=== PATIENT | male | born 1970 | race Caucasian/White ===

== ENCOUNTER 2020-02-28 08:58 | Day surgery (SDC) | payer OTHER ==
[~2020-02-28 08:58] MED LIST: ADVAIR 250-501 EACH INH; ALLOPURINOL100 MG PO; ALLOPURINOL300 MG PO; AMLODIPINE BESYL5 MG PO; FERROUS SULFAT325 MG PO; FREESTYLE LITE1 EAC1; GLIPIZIDE5 MG PO; HYDROCODON-ACE1 EA10 PO; IRON325 M1 PO; K-TAB ER20 MEQ PO; LEVOTHYROXINE50 MCG PO; LEVOTHYROXINE75 MCG PO; LINZESS145 MCG PO; LISINOPRIL20 MG PO; LUMIGAN2.5 M1 OPTH; NORCO 5-325 TA1 EACH PO; OMEPRAZOLE20 MG PO; ONE TOUCH ULTR1 EACH MISC; POTASSIUM40 MEQ/15 PO; RISPERDAL1 MG PO; SERTRALINE HCL100 MG PO; TORSEMIDE20 MG PO; VITAMIN D350 MCG PO; VITAMIN D35000 UNI1 PO; VITAMIN D5000 UNIT PO; [UNRECOGNIZED DRUG - SUPPLY] MISC
--- NOTE | 2020-02-28 09:17 | NUR ---
PATIENT IS ACCOMPANIED BY ELIA TRIM MECHANIC FROM [facility].
--- NOTE | 2020-02-29 11:23 | OR ---
[facility] [address] [place], [place] [address] Signed DATE OF OPERATION: 02/28/2020 SURGEON: Mellisa Markham MD PREOPERATIVE DIAGNOSES: 1. Left thyroid mass (5 cm). 2. Known metastatic renal cell carcinoma. 3. Morbid obesity and mental deficiency. POSTOPERATIVE DIAGNOSES: 1. Left thyroid mass (5 cm). 2. Known metastatic renal cell carcinoma. 3. Morbid obesity and mental deficiency. PROCEDURE: Ultrasound-guided fine-needle aspiration of left thyroid mass (three separate biopsies). SURGEON: Mellisa Markham MD ANESTHESIA: Local 1% lidocaine. INDICATIONS: This morbidly obese 49-year-old white man is a patient of Dr. Simba Russell, in [place], [place], and additionally, Dr. Garcia. He is known to have metastatic renal cell carcinoma. He has underlying developmental delay and impressive obesity. He was found to have a mass in his left thyroid, which measured nearly [address] scan confirmed by ultrasound on January 18, 2020. This has been assumed likely a metastatic renal cell carcinoma. He was referred for consideration of resection. However, I have recommended biopsy rather than directly proceeding to operation considering his comorbidities and so on. Additionally, he is anticipating a colonoscopy. He is now to undergo ultrasound-guided fine-needle aspiration biopsy of the left thyroid mass. He understands the risks of bleeding, infection, and so forth. He understands surprisingly well despite his mental deficiencies and certainly his caretakers understand it. FINDINGS: Easy visualization of the lesion was noted on ultrasound. Multiple passes with a 22-gauge needle were undertaken through the mass. Three separate biopsy specimens were sent, all of them somewhat bloody in appearance. There is no hemorrhage of the neck or Electronically Signed By: MELLISA MARKHAM MD 02/29/20 1123 PATIENT NAME: FLORIDA BROWNING OPERATIVE REPORT DATE OF : 68 REPORT #: [id number] PHYSICIAN: MELLISA MARKHAM MD PCP: Simba Russell DO REPORT IS CONFIDENTIAL AND NOT TO BE RELEASED WITHOUT AUTHORIZATION [facility] [address] [place], [place] [address] Signed other problem. I suspect that the lesion may well be metastatic renal cell carcinoma on that basis alone. DESCRIPTION OF PROCEDURE: In the Day Surgery area in the exam room, he was placed in the supine position with his neck with slight neck extension. Interrogation of the neck was undertaken with ultrasound probe from the iNeed device showing a well-defined large mass or left thyroid lobe. The area was prepared with a chlorhexidine solution and draped sterilely. The ultrasound probe was placed in a sterile sleeve. Revisualization of the lesion was undertaken and a few mL of 1% lidocaine was injected locally. Using a control syringe with a 22-gauge needle, passage of the needle into the mass itself was undertaken and multiple passes taken through it. The resultant aspiration biopsy was somewhat bloody and was passed into CytoLyt solution as usual. Two additional biopsies were taken with separate syringe and needle the same way, one of them transversely. Photographs were taken throughout. There was no sign of bleeding or other problem. A Band-Aid was applied. He tolerated the procedure well. Mellisa Markham MD JM/MODL /[id number] cc: MD Simba Giang DO Copies: SUSIE GARCIA MD, Jonas H DO ~ Electronically Signed By: MELLISA MARKHAM MD 02/29/20 1123 PATIENT NAME: FLORIDA BROWNING OPERATIVE REPORT DATE OF : 68 REPORT #: [id number] PHYSICIAN: MELLISA MARKHAM MD PCP: Simba Russell DO REPORT IS CONFIDENTIAL AND NOT TO BE RELEASED WITHOUT AUTHORIZATION
== END 2020-02-28 18:00 | disposition home or self-care (01) ==
LOC: OPS 08:58 → DS 08:58 → OPS 09:00 → DS 09:00 → EDSTATUS 09:00 → DS 09:04 → OPS 18:00
PROC: 0GBG4ZX Excision of Left Thyroid Gland Lobe, Percutaneous Endoscopic Approach, Diagnostic (ICD-10-PCS; principal; 2020-02-28)
DX: E07.9 Disorder of thyroid, unspecified (principal); C64.9 Malignant neoplasm of unspecified kidney, except renal pelvis; F79 Unspecified intellectual disabilities; J45.909 Unspecified asthma, uncomplicated; F32.9 Major depressive disorder, single episode, unspecified; K21.9 Gastro-esophageal reflux disease without esophagitis; I10 Essential (primary) hypertension; E66.01 Morbid (severe) obesity due to excess calories; Z79.899 Other long term (current) drug therapy; Z79.84 Long term (current) use of oral hypoglycemic drugs; Z68.43 Body mass index [BMI] 50.0-59.9, adult
CPT/HCPCS: 10021; 88173; 88305; 88341; 88342

== ENCOUNTER 2020-03-04 10:06 | Day surgery (SDC) | payer OTHER ==
[~2020-03-04] VITALS: Ht 165.1 cm; Wt 159.2 kg
--- NOTE | 2020-03-04 14:03 | NUR ---
03/04/20 1403 Virginie Kelley 1358-PATIENT ARRIVED TO PACU ON 6L MASK RR EVEN REACTIVE TO VERBAL STIMULI. LAYING LEFT LATERAL. ABDOMEN ROUND AND SOFT. GLUCOSE 96
--- NOTE | 2020-03-04 20:12 | EKG ---
[facility] [address] [facility] [place], [place] [address] Signed Normal sinus rhythm Cannot rule out Anterior infarct , age undetermined Abnormal ECG When compared with ECG of 05-NOV-2016 15:29, No significant change was found Confirmed by JENNIFER GIORDANO MD ([id number]) on 03/04/2020 8:12:16 PM Electronically Signed By: JENNIFER GIORDANO MD 03/04/202011 PATIENT NAME: FLORIDA BROWNING Electrocardiogram DATE OF : 68 PHYSICIAN: JENNIFER GIORDANO MD REPORT #: [id number] REPORT IS CONFIDENTIAL AND NOT TO BE RELEASED WITHOUT AUTHORIZATION
--- NOTE | 2020-03-05 15:16 | OR ---
[facility] [address] [place], [place] [address] Signed DATE OF OPERATION: 03/04/2020 SURGEON: Mellisa Markham MD PREOPERATIVE DIAGNOSES: 1. Episodic rectal bleeding. 2. Stage IV renal carcinoma. 3. Known external hemorrhoidal changes. POSTOPERATIVE DIAGNOSES: 1. Grade 4 hemorrhoidal disease. 2. Pedunculated low rectal polyp with ulceration and bleeding (likely source of rectal bleeding). PROCEDURES: Total colonoscopy to cecum with hot snare polypectomy of low rectal polyp. ANESTHESIA: Intravenous sedation, propofol infusion, Anmol Manley CRNA INDICATIONS: This 49-year-old morbidly obese, developmentally delayed white man, patient of Dr. Simba Russell, as well as Dr. Alexx Mckeon. He is known to have stage IV renal carcinoma and no longer on palliative chemotherapy. He recently was seen by me with a 5 cm mass of the left thyroid lobe, which was biopsied by ultrasound-guided technique and pathology is still pending. The patient incidentally has had issues of rectal bleeding. He has apparently been evaluated by Dr. Tovar in [place] with recommendation made for colonoscopy. The logistics of his colonoscopy have been problematic due to the COVID epidemic. His street sweeper operator is asking if the procedure could be done locally in a more timely way, that is certainly possible, and on that basis, he has been off for colonoscopy. The risks of bleeding, infection, and perforation was reviewed with the patient to the extent he could understand and his street sweeper operator and they understand and wished to proceed. FINDINGS: The prep was quite good. Complete colonoscopy was undertaken of the cecum without question. He did have some internal and external hemorrhoidal changes, but those are unlikely the source of his bleeding, thus far as I can tell. There was, however, a very elongated pedunculated ulcerated polyp of the low rectum. This was moreover consistent Electronically Signed By: MELLISA MARKHAM MD 03/05/20 1516 PATIENT NAME: FLORIDA BROWNING OPERATIVE REPORT DATE OF : 68 REPORT #: [id number] PHYSICIAN: MELLISA MARKHAM MD PCP: Simba Russell DO REPORT IS CONFIDENTIAL AND NOT TO BE RELEASED WITHOUT AUTHORIZATION [facility] [address] [place], [place] [address] Signed with a polyp that a hypertrophied anal papilla, though the latter is still possible given its location. Complete excision was undertaken using hot snare polypectomy technique. Good hemostasis was noted. DESCRIPTION OF PROCEDURE: The patient was brought to the endoscopy suite and placed in lateral decubitus position given intravenous sedation with propofol infusional technique by the hot mill operator. External digital examination showed grade 4 hemorrhoidal disease. No sign of bleeding, ulceration, or thrombosis. Digital rectal examination showed diminished anal sphincter tone. An Olympus video colonoscope was passed into the rectum and manipulated throughout the colon, ultimately intubating the cecum quite promptly. The ileocecal valve and appendiceal orifice were normal. Scope was then withdrawn and close examination throughout showed no sign of abnormality until retroflexed view of the rectum showed a pedunculated polyp. This was well above the dentate line and was most consistent with a pedunculated polyp rather than a hypertrophied anal papilla. Hot snare polypectomy technique was used to excise it completely. The specimen was passed for pathology. Further withdrawal of scope confirmed internal hemorrhoidal changes, but again no sign of active bleeding at this time. CONCLUSION DIAGNOSES: 1. Internal and external hemorrhoidal changes (grade 4). 2. Ulcerated bleeding pedunculated low rectal polyp (excised). PLAN: We await his pathology report from thyroid biopsy. In the meantime, a high-fiber diet would be beneficial to him, avoiding progression of hemorrhoidal disease to bleeding or thrombosis. MD AMIE Siegel/MODL /[id number] cc: Simba Russell DO Electronically Signed By: MELLISA MARKHAM MD 03/05/20 1516 PATIENT NAME: FLORIDA BROWNING OPERATIVE REPORT DATE OF : 68 REPORT #: [id number] PHYSICIAN: MELLISA MARKHAM MD PCP: Simba Russell DO REPORT IS CONFIDENTIAL AND NOT TO BE RELEASED WITHOUT AUTHORIZATION [facility] [address] [place], [place] [address] Signed Alexx Mckeon MD Copies: Simba Russell ROBERT C MD ~ Electronically Signed By: MELLISA MARKHAM MD 03/05/20 1516 PATIENT NAME: FLORIDA BROWNING OPERATIVE REPORT DATE OF : 68 REPORT #: [id number] PHYSICIAN: MELLISA MARKHAM MD PCP: Simba Russell DO REPORT IS CONFIDENTIAL AND NOT TO BE RELEASED WITHOUT AUTHORIZATION
--- NOTE | 2020-03-07 16:48 | PATH ---
[facility] [address] [place], [place] [address] Signed SPECIMEN(S): A RECTAL POLYP SPECIMEN SOURCE: A. RECTAL POLYP CLINICAL HISTORY: Anorectal bleeding. History of renal CA. Postop: "Ductulate" hemorrhagic rectal polyp. MICROSCOPIC DESCRIPTION: Histologic sections of all submitted blocks are examined by light microscopy. These findings, together with the gross examination, support the pathologic diagnosis. FINAL PATHOLOGIC DIAGNOSIS: Rectum, polyp, polypectomy: - Ulcerated prolapse polyp. - Negative for dysplasia or malignancy. COMMENT: As part of [facility]' Quality Improvement Program, this case was reviewed by another member of our pathology staff. NAL: :cml:C2NR GROSS DESCRIPTION: The specimen, labeled "EP, 1," and designated on the requisition "rectal polyp," is received in formalin and consists of one peters-brown soft tissue polypoid fragment that measures 0.8 cm in greatest dimension. The specimen is inked black, trisected, and entirely submitted in cassette (A1). AT (under the direct supervision of a pathologist) The Gross Description was prepared using a voice recognition system. The report was reviewed for accuracy; however, sound-alike word errors, addition and/or deletions may occur. If there is any question about this report, please contact Client Services. PERFORMING LABORATORY: The technical component was performed by [facility], [address] [place] [id number] (Speech And Language Clinician: Rosaline Jacobo MD; CLIA# [id number]). [facility] [address] [address] (CLIA# [id number]). PATIENT NAME: FLORIDA BROWNING PATHOLOGY DATE OF : 68 REPORT #: [id number] PHYSICIAN: [facility] PCP: Simba Russell DO REPORT IS CONFIDENTIAL AND NOT TO BE RELEASED WITHOUT AUTHORIZATION [address] [address] Signed Diagnostician: Dianelys Beach MD Pathologist Electronically Signed 03/07/2020 Copies: ~ PATIENT NAME: FLORIDA BROWNING PATHOLOGY DATE OF : 68 REPORT #: [id number] PHYSICIAN: [facility] PCP: Simba Russell DO REPORT IS CONFIDENTIAL AND NOT TO BE RELEASED WITHOUT AUTHORIZATION
== END 2020-03-04 14:50 | disposition home or self-care (01) ==
LOC: OPS 10:06
PROVIDERS: Surgery
PROC: 0DBP8ZZ Excision of Rectum, Via Natural or Artificial Opening Endoscopic (ICD-10-PCS; principal; 2020-03-04 11:45)
DX: K62.1 Rectal polyp (principal); K64.3 Fourth degree hemorrhoids; K64.4 Residual hemorrhoidal skin tags; E11.22 Type 2 diabetes mellitus with diabetic chronic kidney disease; N18.3 Chronic kidney disease, stage 3 (moderate); K21.9 Gastro-esophageal reflux disease without esophagitis; Z79.899 Other long term (current) drug therapy; Z79.84 Long term (current) use of oral hypoglycemic drugs
CPT/HCPCS: 88305; 93005; 93010; J2001; J2704; J7121